=== PATIENT | female | born 1955 | race Caucasian/White ===

== ENCOUNTER 2018-06-18 22:20 | Emergency (ER) | payer SELFPAY ==
[~2018-06-18] VITALS: Ht 165.1 cm; Wt 150.0 kg
[~2018-06-18 22:20] MED LIST: METF-849 PO; OMEP20CA9 PO; [UNRECOGNIZED DRUG - REMARK]
[2018-06-18 22:34] VITALS: Ht 165.1 cm; Wt 150.0 kg
== END 2018-06-19 03:48 | disposition left against medical advice (07) ==
LOC: FTE 22:20
DX: Z53.21 Procedure and treatment not carried out due to patient leaving prior to being seen by health care provider (principal)